=== PATIENT | female | born 1990 | race Caucasian/White ===

== ENCOUNTER 2016-11-16 22:51 | Emergency (ER) | payer OTHER ==
[~2016-11-16] VITALS: Ht 165.1 cm; Wt 70.5 kg
[~2016-11-16 22:51] MED LIST: ACET500C5 PO; DICL50TA11 PO; FAMO40TA52 PO; IBUP-1542 PO; PRAM28.33 PR
[2016-11-16 23:03] VITALS: Ht 165.1 cm; Wt 70.5 kg
[2016-11-16] MEDS ORDERED: FAMO-18 PO (23:52)
[2016-11-17] MEDS ORDERED: LIDOCAINE/MYLANTA 40 ML BTL PO ONE
[2016-11-17] MEDS ORDERED: HYDR30CR75 PR (00:02)
--- NOTE | 2016-11-17 00:06 | ERD ---
ER Documentation Chief Complaint Date/Time DATE: 11/17/16 TIME: 00:03 Chief Complaint AP x1 wk. feels bloated HPI Patient is a 26-year-old female with a past medical history of hemorrhoids, gastritis who presents the emergency department with epigastric pain 1 week. Patient states that she is having "heartburn" and increased burping over the last week. Patient states that she does eat spicy and fried foods. She states that she is trying to cut back. Patient denies any fever, nausea, vomiting. Patient reports intermittent chills. Patient also reports increased bloating. Patient states that today she had one episode of bright red blood on her toilet paper when wiping. Patient states that she does strain. Patient reports daily bowel movements but states that they are often hard. She denies any chest pain , shortness of breath, arm pain, diaphoresis. Patient does have some burning pain with urination. Patient denies any hematuria. Patient states her last menstrual period was on November 02, 2016 ROS All systems reviewed and are negative except as per history of present illness. Medications Home Meds Active Scripts Hydrocortisone Acetate* (Anusol-HC*) 30 Gm Cream.gm., 1 APPLIC [place] BID, #1 TUB Prov:BRANDEN MARTINO PA-C 11/17/16 Famotidine* (Pepcid*) 20 Mg Tablet, 20 MG PO BID for 30 Days, #60 TAB Prov:BRANDEN MARTINO PA-C 11/16/16 Ibuprofen* (Motrin*) 600 Mg Tab, 600 MG PO Q6, #20 TAB Prov:KAYLAN GUZMAN I. [employer] 02/05/16 Diclofenac Sodium* (Diclofenac Sodium*) 50 Mg Tablet.dr, 50 MG PO BID, #14 TAB Prov:KAYLAN GUZMAN I. [employer] 02/05/16 Acetaminophen* (Tylophen*) 500 Mg Capsule, 1 CAP PO Q6H Y for PAIN AND OR ELEVATED TEMP, #20 CAP Prov:LORENA SHAFFER MD 12/28/15 Famotidine* (Famotidine*) 40 Mg Tablet, 40 MG PO HS, #30 TAB Prov:LORENA SHAFFER MD 12/28/15 Ibuprofen* (Motrin*) 600 Mg Tab, 600 MG PO Q6, #30 TAB Prov:MARCIE DAVIES 10/13/15 Pramoxine Hcl* (Anusol*) 28.3 Gm Oint...g., 1 APPLIC [place] BID for 7 Days, TUB Prov:MARCIE DAVIES 10/13/15 Allergies Allergies: Coded Allergies: No Known Allergy (Unverified , 10/13/15) PMhx/Soc Medical and Surgical Hx: pt denies Medical Hx, pt denies Surgical Hx History of Surgery: No Anesthesia Reaction: No Hx Neurological Disorder: No Hx Respiratory Disorders: No Hx Cardiac Disorders: No Hx Psychiatric Problems: No Hx Miscellaneous Medical Probl: No Hx Alcohol Use: Yes (SOCIALLY) Hx Substance Use: No Hx Tobacco Use: No Smoking Status: Never smoker FmHx Family History: No diabetes Physical Exam Vitals Vital Signs Date Time Temp Pulse Resp B/P Pulse Ox O2 Delivery O2 Flow Rate FiO2 11/16/16 23:03 98.0 96 18 130/57 100 Physical Exam GENERAL: Well-developed, well-nourished female. Appears in no acute distress. HEAD: Normocephalic, atraumatic. EYES: Pupils are equally reactive bilaterally. EOMs grossly intact. No conjunctival erythema. ENT: Moist mucous membranes. No uvula deviation. No kissing tonsils. NECK: Supple. No meningismus. Normal range of motion of the neck. LUNG: Clear to auscultation bilaterally. No rhonchi, wheezing, rales or coarse breath sounds. HEART: Regular rate and rhythm. No murmurs, rubs or gallops. ABDOMEN: No scars, ecchymosis or rashes noted. Soft, nontender, and nondistended. Positive bowel sounds in all four quadrants. No rebound tenderness , no guarding. (-) McBurney's point tenderness. No CVA tenderness. RECTAL: Normal anus with+ external hemorrhoids. Non erythematous, no swelling. No rectal prolapse. Normal anal sphincter tone. BACK: No midline tenderness. EXTREMITIES: Equal pulses bilaterally. No peripheral clubbing, cyanosis or edema. No unilateral leg swelling. NEUROLOGIC: Alert and oriented. Moving all four extremities without any difficulty. Normal speech. Steady gait. SKIN: Normal color. Warm and dry. No rashes or lesions. Results 24 hrs Laboratory Tests Test 11/17/16 00:16 Bedside Urine Blood Trace-lysed Bedside Urine Glucose (UA) Negative Bedside Urine Ketones (LAB) Negative Bedside Urine Leukocyte Esterase (L Negative Bedside Urine Nitrite (LAB) Negative Bedside Urine Protein (LAB) Negative Bedside Urine pH (LAB) 5.5 Current Medications Medications (Trade) Dose Ordered Sig/Zia Route PRN Reason Start Time Stop Time Status Last Admin Dose Admin Miscellaneous Medication (Gi Cocktail (2)) 40 ml ONCE ONCE PO 11/17/16 00:00 11/17/16 00:01 DC 11/17/16 00:09 Procedures/MDM MEDICAL DECISION MAKING: This is a 26 year old female who presents with epigastric pain and one episode of rectal bleeding noted on toilet paper. Vital signs were reviewed. Patient is afebrile. Abdominal exam was negative. Rectal exam revealed external hemorrhoids. Patient was given a GI cocktail here in the ED, which she stated did improve her symptoms.Urine dip was negative for acute infection and hematuria. At this time, patient's presentation is most consistent with gastritis and external hemorrhoids. Unable to rule out internal hemorrhoids. I have a much lower clinical concern for acute coronary syndrome, lower lobe pneumonia, bowel obstruction, cholecystitis, pancreatitis, diverticulitis, UTI, pyelonephritis, anorectal abscess, anal fissure, anal fistula, rectal prolapse. Unable to rule PUD. PRESCRIPTIONS: Pepcid, Anusol cream DISCHARGE: At this time, patient is stable for discharge and outpatient management. Dietary modifications advised, patient advised to avoid spicy, fried and acidic foods. I have instructed the patient to follow-up with his/her primary care physician in 1-2 days. Patient should follow up with GI specialist for possible endoscopy to rule out PUD and anoscopy for hemorrhoids. I have instructed the patient to promptly return to the ER at any time for any new or worsening symptoms including increased pain, nausea, vomiting, diarrhea, fever, weakness or LOC. The patient and/or family expressed understanding of and agreement with this plan. All questions were answered. Home care instructions were provided. Departure Diagnosis: Primary Impression: Abdominal pain Abdominal location: unspecified location Qualified Code: R10.9 - Abdominal pain, unspecified location Additional Impression: Hemorrhoids Hemorrhoid type: unspecified Qualified Code: K64.9 - Hemorrhoids, unspecified hemorrhoid type Condition: Stable Patient Instructions: Abdominal Pain, Hemorrhoids Additional Instructions: Call your primary care doctor TOMORROW for an appointment during the next 1-2 days.See the doctor sooner or return here if your condition worsens before your appointment time. Unable to rule out internal hemorrhoids at this time. Patient may need to follow-up with a GI specialist if symptoms persist. She may need a colonoscopy on an outpatient basis. Patient was advised to increase fiber intake including apples, grapes, and prunes. Patient advised to avoid straining. BRANDEN MARTINO PA-C Nov 17, 2016 00:06
[2016-11-17 00:13] LABS: URINE BLOOD (Dip) POC Trace-lysed (NEGATIVE)
== END 2016-11-17 00:52 | disposition home or self-care (01) ==
LOC: FTE 22:51
DX: R10.13 Epigastric pain (principal); K64.9 Unspecified hemorrhoids
CPT/HCPCS: 81003; Z7502; Z7610; 99283

== ENCOUNTER 2017-06-21 11:28 | Emergency (ER) | payer OTHER ==
[~2017-06-21] VITALS: Ht 172.7 cm; Wt 71.0 kg
[~2017-06-21 11:28] MED LIST changes: +FAMO-96 PO; +HYDR30CR75 PR
[2017-06-21 11:29] VITALS: Ht 172.7 cm; Wt 71.0 kg
--- NOTE | 2017-06-21 11:57 | ERD ---
ER Documentation Chief Complaint Date/Time DATE: 06/21/17 TIME: 11:53 Chief Complaint PELVIC PAIN X 3 DAYS HPI This is a 26-year-old female who presents the emergency department today complaining of intermittent pelvic pain for the past 2 days. States that she has had pelvic pain in the past and was told that she had a cyst and she did follow up with her primary doctor and was told there is nothing she could do for it. States she is currently active with one sexual partner and had pain with intercourse the other day. Denies use of contraception. States she is not trying to get . States that a week ago she was diagnosed with a UTI but stopped taking medication because it made her nauseated. States sometimes she feels bloated and thinks that she is constipated. Denies any fevers or chills. Denies any abdominal pain or pelvic pain currently denies any vaginal bleeding. States she is unsure if she has vaginal discharge. ROS All systems reviewed and are negative except as per history of present illness. Medications Home Meds Active Scripts Fluconazole* (Diflucan*) 150 Mg Tablet, 150 MG PO ONCE, #1 TAB Prov:NICHOLAS ROLLINS PA-C 06/21/17 Clotrimazole* (Clotrimazole* AF) 1% - 30 Gm Cream.gm., 1 APPLIC TOP BID for 7 Days, #1 TUB Prov:NICHOLAS ROLLINS PA-C 06/21/17 Naproxen* (Naprosyn*) 500 Mg Tablet, 500 MG PO BID Y for PAIN AND/OR INFLAMMATION, #30 TAB Prov:NICHOLAS ROLLINS PA-C 06/21/17 Hydrocortisone Acetate* (Anusol-HC*) 30 Gm Cream.gm., 1 APPLIC [place] BID, #1 TUB Prov:BRANDEN MARTINO PA-C 11/17/16 Famotidine* (Pepcid*) 20 Mg Tablet, 20 MG PO BID for 30 Days, #60 TAB Prov:BRANDEN MARTINO PA-C 11/16/16 Ibuprofen* (Motrin*) 600 Mg Tab, 600 MG PO Q6, #20 TAB Prov:KAYLAN GUZMAN NP 02/05/16 Diclofenac Sodium* (Diclofenac Sodium*) 50 Mg Tablet.dr, 50 MG PO BID, #14 TAB Prov:GUZMANKAYLAN GAMBLE NP 02/05/16 Acetaminophen* (Tylophen*) 500 Mg Capsule, 1 CAP PO Q6H Y for PAIN AND OR ELEVATED TEMP, #20 CAP Prov:LORENA SHAFFER MD 12/28/15 Famotidine* (Famotidine*) 40 Mg Tablet, 40 MG PO HS, #30 TAB Prov:LORENA SHAFFER MD 12/28/15 Ibuprofen* (Motrin*) 600 Mg Tab, 600 MG PO Q6, #30 TAB Prov:MARCIE DAVIES 10/13/15 Pramoxine Hcl* (Anusol*) 28.3 Gm Oint...g., 1 APPLIC [place] BID for 7 Days, TUB Prov:SAMSONMARCIE C 10/13/15 Allergies Allergies: Coded Allergies: No Known Allergy (Unverified , 10/13/15) PMhx/Soc History of Surgery: No Anesthesia Reaction: No Hx Neurological Disorder: No Hx Respiratory Disorders: No Hx Cardiac Disorders: No Hx Psychiatric Problems: No Hx Miscellaneous Medical Probl: No Hx Alcohol Use: Yes (SOCIALLY) Hx Substance Use: No Hx Tobacco Use: No Smoking Status: Former smoker Physical Exam Vitals Vital Signs Date Time Temp Pulse Resp B/P Pulse Ox O2 Delivery O2 Flow Rate FiO2 06/21/17 11:29 98.0 68 18 117/59 100 Physical Exam Const: NAD Head: Atraumatic Eyes: Normal Conjunctiva ENT: Normal External Ears, Nose and Mouth. Neck: Full range of motion..~ No meningismus. Resp: Clear to auscultation bilaterally Cardio: Regular rate and rhythm, no murmurs Abd: Soft, non tender, non distended. Normal bowel sounds pelvic exam with evidence of significant amount of yeast. No cervical motion tenderness. No bleeding Skin: No petechiae or rashes Back: No midline or flank tenderness Ext: No cyanosis, or edema Neur: Awake and alert Psych: Normal Mood and Affect Results 24 hrs Laboratory Tests Test 06/21/17 11:51 Urine Color YELLOW Urine Clarity CLOUDY Urine pH 6.0 Urine Specific [place] 1.028 Urine Ketones NEGATIVEmg/dL Urine Nitrite NEGATIVEmg/dL Urine Bilirubin NEGATIVEmg/dL Urine Urobilinogen NEGATIVEmg/dL Urine Leukocyte Esterase TRACELeu/ul Urine Microscopic RBC 1/HPF Urine Microscopic WBC 3/HPF Urine Squamous Epithelial Cells MANY/HPF Urine Bacteria FEW/HPF Urine Mucus FEW/HPF Urine Hemoglobin NEGATIVEmg/dL Urine Glucose NEGATIVEmg/dL Urine Total Protein NEGATIVEmg/dl DIAGNOSTIC IMAGING REPORT Patient: CHANDU LOPEZ : 1990 Age: 26 Sex: F MR #: [id number] DOS: 06/21/17 0000 Ordering MD: NICHOLAS ROLLINS PA-C Location: [facility] Room/Bed: PROCEDURE: US Pelvis Transabdominal and Transvaginal. CLINICAL INDICATION: Pelvic pain. TECHNIQUE: Multiple sonographic images of the pelvis were obtained utilizing burris scale, Doppler and color flow imaging with transabdominal and endovaginal technique. The images were reviewed on a PACS workstation. COMPARISON: October 13, 2015 FINDINGS: The uterus is visualized and measures 7.3 x 3.5 x 4.1 cm. The endometrial echo complex measures 14.1 mm in thickness. No uterine masses are identified. The right ovary measures 2.8 x 1.7 x 1.8 cm . The left ovary measures 3.0 x 2.2 x 2.4 cm. A 2.0 cm cyst containing echogenic debris is identified on the left ovary. The ovaries demonstrate normal vascularity.. No adnexal masses or pelvic free fluid are noted. IMPRESSION: 2.0 cm cyst containing echogenic debris on the left ovary. This likely reflects a hemorrhagic cyst. Continued follow-up with repeat exam in 12 weeks to assess stability can be considered. Otherwise, unremarkable exam. If further characterization of the organs of the pelvis is needed MRI should be considered. RPTAT: AA .Paul Mane MD, MD Date Time Electronically viewed and signed by .Paul Mane MD, MD on 06/21/2017 13:10 .P/ CC: NICHOLAS ROLLINS PA-C Procedures/[facility] This 26-year-old female who presents the emergency department today complaining of intermittent pelvic pain for the past couple of days and pain with intercourse. Patient is a poor historian and stated that she was told that she had a urinary tract infection and then reiterated that the doctor told her she did not have one but she was just given antibiotics anyway. Given patient's complaints I did obtain a pelvic ultrasound and UA. UA shows trace leukocyte esterase and no increase in microscopic white blood cells. There are many epithelial cells. Urine was sent for gonorrhea and chlamydia test is negative Ultrasound is a 2 cm cyst containing echogenic debris on the left ovary. This likely reflects a hemorrhagic cyst. Repeat follow-up exam in 12 weeks was recommended. There is normal vascularity to bilateral ovaries. There is no adnexal mass or free fluid. Pelvic exam showed a significant amount of yeast and patient will be given a prescription for Chlortrimazole cream as well as Diflucan. 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 Patient sees may be the cause of her pelvic pain and pain with intercourse and dysuria. She has no cervical motion tenderness and I have low suspicion for PID. She is afebrile and otherwise well-appearing. This patient for ectopic or tubo-ovarian abscess. She denies any pain currently. She will be given a prescription for Tylenol for home addition to the Chlortrimazole and Diflucan. At this time the patient is stable for discharge and outpatient management. Patient should follow up with their PCP in the next 1-2 days. They may return to the emergency department sooner for any persistent or worsening of symptoms. Patient understood and agreed with the plan. Departure Diagnosis: Primary Impression: Pelvic pain Condition: NICHOLAS Garvin PA-C Jun 21, 2017 11:57
[2017-06-21 12:26] LABS: ADD UMIC YES; UR ASCORBIC ACID NEGATIVE (NEGATIVE); UR BACTERIA FEW /HPF (NONE SEEN); UR BILIRUBIN (Dip) NEGATIVE (NEGATIVE); UR BLOOD (Dip) NEGATIVE (NEGATIVE); UR CLARITY CLOUDY (CLEAR); UR COLOR YELLOW (YELLOW); UR GLUCOSE (Dip) NEGATIVE (NEGATIVE); UR KETONES (Dip) NEGATIVE (NEGATIVE); UR LEUKOCYTE ESTERASE (Dip) TRACE Leu/ul (NEGATIVE); UR MUCUS FEW /HPF (NONE SEEN); UR NITRITE (Dip) NEGATIVE (NEGATIVE); UR NONSQUAMOUS EPITHELIAL CELL 1 /HPF (NONE SEEN); UR RBC 1 /HPF (0-5); UR SPECIFIC GRAVITY (Dip) 1.028 (1.003-1.030); UR SQUAMOUS EPITHELIAL CELL MANY /HPF (FEW); UR TOTAL PROTEIN (Dip) NEGATIVE (NEGATIVE); UR UROBILINOGEN (Dip) NEGATIVE (NEGATIVE)
--- NOTE | 2017-06-21 13:11 | RADRPT ---
PROCEDURE: US Pelvis Transabdominal and Transvaginal. CLINICAL INDICATION: Pelvic pain. TECHNIQUE: Multiple sonographic images of the pelvis were obtained utilizing burris scale, Doppler a nd color flow imaging with transabdominal and endovaginal technique. The images were reviewed on a PACS workstation. COMPARISON: October 13, 2015 FINDINGS: The uterus is visualized and measures 7.3 x 3.5 x 4.1 cm. The endometrial echo complex measures 14.1 mm in thickness. No uterine masses are identified. The right ovary measures 2.8 x 1.7 x 1.8 cm . The left ovary measures 3.0 x 2.2 x 2.4 cm. A 2.0 cm cyst containing echogenic debris is identified on the left ovary. The ovaries demonstrate normal va scularity.. No adnexal masses or pelvic free fluid are noted. IMPRESSION: 2.0 cm cyst containing echogenic debris on the left ovary. This likely reflects a hemorrhagic cyst. Continued follow-up with repeat exam in 12 weeks to assess stability can be considered. Otherwise, unremarkable exam. If further characterization of the organs of the pelvis is needed MRI should be considered. RPTAT: AA .Paul Mane MD, MD Date Time Electronically viewed and signed by .Paul Mane MD, MD on 06/21/2017 13:10 .P/
[2017-06-21] MEDS ORDERED: NAPR-260 PO (13:57)
[2017-06-21] MEDS ORDERED: FLUC150T17 PO (13:59)
[2017-06-21] MEDS ORDERED: CLOT30CR24 TOP (13:59)
== END 2017-06-21 14:25 | disposition home or self-care (01) ==
LOC: FTE 11:28
DX: R10.2 Pelvic and perineal pain (principal); Z87.891 Personal history of nicotine dependence
CPT/HCPCS: 76830; 76856; 81001; 87591; Z7502; 99284

== ENCOUNTER 2017-09-30 19:01 | Emergency (ER) | END 2017-10-01 10:20 | disposition left against medical advice (07) ==

== ENCOUNTER 2018-03-13 20:16 | Emergency (ER) | END 2018-03-14 01:18 | disposition home or self-care (01) ==

== ENCOUNTER 2019-01-25 21:19 | Emergency (ER) | payer OTHER ==
[~2019-01-25] VITALS: Ht 162.6 cm; Wt 85.6 kg
[~2019-01-25 21:19] MED LIST changes: +BTM.05O15 TOP; +CLOT30CR24 TOP; +FAMO40TA5 PO; -FAMO40TA52 PO; +FLUC150T PO; +NAPR-985 PO
[2019-01-25 21:21] VITALS: Ht 162.6 cm; Wt 85.6 kg
[2019-01-25] MEDS ORDERED: ONDANSETRON (ODT) 4 MG TAB ODT STA (23:22)
[2019-01-25] MEDS ORDERED: FAMOTIDINE 20 MG TAB PO STA (23:22)
[2019-01-25] MEDS ORDERED: LIDOCAINE/MYLANTA 40 ML BTL PO STA (23:22)
[2019-01-25] MEDS ORDERED: FAMO-96 PO (23:25)
--- NOTE | 2019-01-25 23:27 | ERD ---
ER Documentation Chief Complaint Chief Complaint ABD PAIN WITH N/V XTODAY; AFTER EATING EGGS HPI 28-year-old female presenting with complaints of epigastric abdominal pain with burning in her chest and acid reflux. Her symptoms have been going on for quite some time now but worsening. She is on a tetracycline for her acne and states that when she started this medication, her symptoms started. She sometimes forgets to take it with plenty of water and food. Today her symptoms were worse than usual with more acid reflux and nonbloody and nonbilious vomiting. No hem atochezia, melena, constipation or diarrhea. No fevers or chills. No chest pain or shortness of breath otherwise. She has not tried to take anything for her symptoms. ROS All systems reviewed and are negative except as per history of present illness. Medications Home Meds Active Scripts Famotidine* (Pepcid*) 20 Mg Tablet, 20 MG PO BID for 14 Days, TAB Prov:SHASHI HENRY MD 01/25/19 Betamethasone Dipropionate* (Betamethasone Dipropionate*) 0.05% - 15 Gm Oint, 1 APPLIC TOP BID for 7 Days, #15 GM APPLY TO: Prov:VETOKIRILL 03/14/18 Fluconazole* (Diflucan*) 150 Mg Tablet, 150 MG PO ONCE, #1 TAB Prov:NICHOLAS ROLLINS PA-C 06/21/17 Clotrimazole* (Clotrimazole* AF) 1% - 30 Gm Cream.gm., 1 APPLIC TOP BID for 7 Days, #1 TUB Prov:NICHOLAS ROLLINS PA-C 06/21/17 Naproxen* (Naprosyn*) 500 Mg Tablet, 500 MG PO BID PRN for PAIN AND/OR INFLAMMATION, #30 TAB Prov:NICHOLAS ROLLINS PA-C 06/21/17 Hydrocortisone Acetate* (Anusol-HC*) 30 Gm Cream.gm., 1 APPLIC [place] BID, #1 TUB Prov:BRANDEN MARTINO PA-C 11/17/16 Famotidine* (Pepcid*) 20 Mg Tablet, 20 MG PO BID for 30 Days, #60 TAB Prov:BRANDEN MARTINO PA-C 11/16/16 Ibuprofen* (Motrin*) 600 Mg Tab, 600 MG PO Q6, #20 TAB Prov:KAYLAN GUZMAN I. [employer] 02/05/16 Diclofenac Sodium* (Diclofenac Sodium*) 50 Mg Tablet.dr, 50 MG PO BID, #14 TAB Prov:KAYLAN GUZMAN I. DIRECTOR [employer] 02/05/16 Acetaminophen* (Tylophen*) 500 Mg Capsule, 1 CAP PO Q6H PRN for PAIN AND OR ELEVATED TEMP, #20 CAP Prov:LORENA SHAFFER MD 12/28/15 Famotidine* (Famotidine*) 40 Mg Tablet, 40 MG PO HS, #30 TAB Prov:LORENA SHAFFER MD 12/28/15 Ibuprofen* (Motrin*) 600 Mg Tab, 600 MG PO Q6, #30 TAB Prov:MARCIE DAVIES 10/13/15 Pramoxine Hcl* (Anusol*) 28.3 Gm Oint...g., 1 APPLIC [place] BID for 7 Days, TUB Prov:MARCIE DAVIES 10/13/15 Allergies Allergies: Coded Allergies: No Known Allergy (Unverified , 10/13/15) PMhx/Soc History of Surgery: No Anesthesia Reaction: No Hx Neurological Disorder: No Hx Respiratory Disorders: No Hx Cardiac Disorders: No Hx Psychiatric Problems: No Hx Miscellaneous Medical Probl: No Hx Alcohol Use: Yes (SOCIALLY) Hx Substance Use: No Hx Tobacco Use: No Smoking Status: Never smoker FmHx Family History: No diabetes Physical Exam Vitals Vital Signs Date Temp Pulse Resp B/P (MAP) Pulse Ox O2 O2 Flow FiO2 Time Delivery Rate 01/26/19 98.0 62 16 114/74 98 Room Air 00:00 (87) 01/25/19 98.8 83 19 144/63 100 21:21 (90) Physical Exam Const: No acute distress Head: Atraumatic Eyes: Normal Conjunctiva ENT: Normal External Ears, Nose and Mouth. Neck: Full range of motion. No meningismus. Resp: Clear to auscultation bilaterally Cardio: Regular rate and rhythm, no murmurs Abd: Soft, non tender, non distended. No McBurney's point tenderness. Negative Myers sign. Normal bowel sounds Skin: No petechiae or rashes Back: No midline or flank tenderness Ext: No cyanosis, or edema Neur: Awake and alert Psych: Normal Mood and Affect Results 24 hrs Current Medications Medications Dose Sig/Zia Start Time Status Last (Trade) Ordered Route PRN Stop Time Admin Dose Reason Admin Famotidine 20 mg ONCE STAT 01/25/19 DC 01/25/19 (Pepcid) PO 23:22 23:28 01/25/19 23:23 40 ml ONCE STAT 01/25/19 DC 01/25/19 Miscellaneous PO 23:22 23:28 Medication 01/25/19 23:23 (Gi Cocktail (2)) Ondansetron 4 mg ONCE STAT 01/25/19 DC 01/25/19 HCl (Zofran ODT 23:22 23:28 Odt) 01/25/19 23:23 Procedures/MDM Initial Nursing notes reviewed. Previous Medical Records requested via the Electronic Health Record. EMERGENCY DEPARTMENT COURSE / MEDICAL DECISION MAKING: Patient symptoms are most consistent with tetracycline induced gastritis. I wilson ve a low suspicion for acute surgical abdomen. She is afebrile with unremarkable vitals. She was treated with Pepcid, GI cocktail, and Zofran. She was able to tolerate fluids by mouth. Diet precautions were discussed. I gave her a prescription for Pepcid. Advised drinking plenty of fluid and eating with her medication. If her symptoms do not improve, she may have to stop taking the medication. If this is the case, I recommend that she follow-up with her primary care doctor to discuss discontinuing or changing the medication. Patient is agreeable with this plan. Patient's blood pressure was elevated (>120/80) but appears stable without evidence of hypertensive emergency or urgency. The patient was counseled about the risks of hypertension and urged to pursue outpatient monitoring and therapy within a week with their primary care physician. Departure Diagnosis: Primary Impression: Drug-induced GI disturbance Additional Impression: Gastritis Gastritis type: other gastritis Chronicity: acute Gastritis bleeding: without bleeding Qualified Codes: K29.00 - Acute gastritis without bleeding Condition: Stable Patient Instructions: Gastritis (Adult) SHASHI HENRY MD Jan 25, 2019 23:27
[2019-01-26] VITALS: BP 114/74; PULSE 62; RESP 16
== END 2019-01-26 | disposition home or self-care (01) ==
LOC: FTE 21:19
DX: K30 Functional dyspepsia (principal); K29.00 Acute gastritis without bleeding
CPT/HCPCS: Z7502; Z7610; 99283

== ENCOUNTER 2019-03-01 18:17 | Emergency (ER) | payer OTHER ==
[~2019-03-01] VITALS: Ht 165.1 cm; Wt 86.1 kg
[2019-03-01 18:30] VITALS: BP 132/61; PULSE 77; RESP 20; Ht 165.1 cm; Wt 86.1 kg
--- NOTE | 2019-03-01 18:56 | ERD ---
ER Documentation Chief Complaint Chief Complaint heart palpitations off and on since Fri. states SOB when she walks. HPI 28-year-old female with history of anemia presents complaint of palpitations on and off since Friday. States that she just started a new job she is been feeling very stressed out. In addition states patient having some mild shortness of breath when she walks. Denies any chest pain, hemoptysis, cough, headaches, extremity swelling, extremity erythema, malignancy, recent travel, recent stasis. ROS All systems reviewed and are negative except as per history of present illness. Medications Home Meds Active Scripts Famotidine* (Pepcid*) 20 Mg Tablet, 20 MG PO BID for 14 Days, TAB Prov:SHASHI HENRY MD 01/25/19 Betamethasone Dipropionate* (Betamethasone Dipropionate*) 0.05% - 15 Gm Oint, 1 APPLIC TOP BID for 7 Days, #15 GM APPLY TO: Prov:KIRILL LAWS 03/14/18 Fluconazole* (Diflucan*) 150 Mg Tablet, 150 MG PO ONCE, #1 TAB Prov:NICHOLAS ROLLINS PA-C 06/21/17 Clotrimazole* (Clotrimazole* AF) 1% - 30 Gm Cream.gm., 1 APPLIC TOP BID for 7 Days, #1 TUB Prov:NICHOLAS ROLLINS PA-C 06/21/17 Naproxen* (Naprosyn*) 500 Mg Tablet, 500 MG PO BID PRN for PAIN AND/OR INFLAMMATION, #30 TAB Prov:NICHOLAS ROLLINS PA-C 06/21/17 Hydrocortisone Acetate* (Anusol-HC*) 30 Gm Cream.gm., 1 APPLIC PA BID, #1 TUB Prov:BRANDEN MARTINOC 11/17/16 Famotidine* (Pepcid*) 20 Mg Tablet, 20 MG PO BID for 30 Days, #60 TAB Prov:BRANDEN MARTINOC 11/16/16 Ibuprofen* (Motrin*) 600 Mg Tab, 600 MG PO Q6, #20 TAB Prov:KAYLAN GUZMAN NP 02/05/16 Diclofenac Sodium* (Diclofenac Sodium*) 50 Mg Tablet.dr, 50 MG PO BID, #14 TAB Prov:KAYLAN GUZMAN Saritha LUKE 02/05/16 Acetaminophen* (Tylophen*) 500 Mg Capsule, 1 CAP PO Q6H PRN for PAIN AND OR ELEVATED TEMP, #20 CAP Prov:LORENA SHAFFER MD 12/28/15 Famotidine* (Famotidine*) 40 Mg Tablet, 40 MG PO HS, #30 TAB Prov:LORENA SHAFFER MD 12/28/15 Ibuprofen* (Motrin*) 600 Mg Tab, 600 MG PO Q6, #30 TAB Prov:SAMSONMARCIE LAU C 10/13/15 Pramoxine Hcl* (Anusol*) 28.3 Gm Oint...g., 1 APPLIC PA BID for 7 Days, TUB Prov:SAMSON,MARCIE C 10/13/15 Allergies Allergies: Coded Allergies: No Known Allergy (Unverified , 10/13/15) PMhx/Soc Medical and Surgical Hx: pt denies Surgical Hx History of Surgery: No Anesthesia Reaction: No Hx Neurological Disorder: No Hx Respiratory Disorders: No Hx Cardiac Disorders: No Hx Psychiatric Problems: No Hx Miscellaneous Medical Probl: No Hx Alcohol Use: Yes (SOCIALLY) Hx Substance Use: No Hx Tobacco Use: No Smoking Status: Never smoker FmHx Family History: No diabetes, No coronary disease, No other Physical Exam Vitals Vital Signs Date Temp Pulse Resp B/P (MAP) Pulse Ox O2 O2 Flow FiO2 Time Delivery Rate 03/01/19 99.3 77 20 132/61 98 18:30 (84) Physical Exam Const: No acute distress Head: Atraumatic Eyes: Normal Conjunctiva ENT: Normal External Ears, Nose and Mouth. Neck: Full range of motion. No meningismus. Resp: Clear to auscultation bilaterally Cardio: Regular rate and rhythm, no murmurs Abd: Soft, non tender, non distended. Normal bowel sounds Skin: No petechiae or rashes Back: No midline or flank tenderness Ext: No cyanosis, or edema Neur: Awake and alert Psych: Normal Mood and Affect Result Diagram: 03/01/19185603/01/191856 Results 24 hrs Laboratory Tests Test 03/01/19 18:57 White Blood Count 6.1 10^3/ul Red Blood Count 3.95 10^6/ul Hemoglobin 10.6 g/dl Hematocrit 34.0 % Mean Corpuscular Volume 86.1 fl Mean Corpuscular Hemoglobin 26.8 pg Mean Corpuscular Hemoglobin Concent 31.2 g/dl Red Cell Distribution Width 13.3 % Platelet Count 234 10^3/UL Mean Platelet Volume 10.9 fl Immature Granulocytes % 0.200 % Neutrophils % 66.2 % Lymphocytes % 22.0 % Monocytes % 9.8 % Eosinophils % 1.3 % Basophils % 0.5 % Nucleated Red Blood Cells % 0.0 /100WBC Immature Granulocytes # 0.010 10^3/ul Neutrophils # 4.1 10^3/ul Lymphocytes # 1.4 10^3/ul Monocytes # 0.6 10^3/ul Eosinophils # 0.1 10^3/ul Basophils # 0.0 10^3/ul Nucleated Red Blood Cells # 0.0 10^3/ul Sodium Level 140 mmol/L Potassium Level 4.2 mmol/L Chloride Level 105 mmol/L Carbon Dioxide Level 27 mmol/L Anion Gap 8 Blood Urea Nitrogen 10 mg/dl Creatinine 0.77 mg/dl Est Glomerular Filtrat Rate mL/min > 60 mL/min Glucose Level 110 mg/dl Calcium Level 9.2 mg/dl Total Bilirubin 0.4 mg/dl Direct Bilirubin 0.00 mg/dl Indirect Bilirubin 0.4 mg/dl Aspartate Amino Transf (AST/SGOT) 34 IU/L Alanine Aminotransferase (ALT/SGPT) 57 IU/L Alkaline Phosphatase 76 IU/L Troponin I < 0.012 ng/ml Total Protein 7.5 g/dl Albumin 4.1 g/dl Globulin 3.40 g/dl Albumin/Globulin Ratio 1.20 Procedures/MDM EKG: Rate/Rhythm: Normal Sinus Rhythm QRS, ST, T-waves: No changes consistent w/ acute ischemia Impression: No evidence of ischemia or arrhythmia MDM: Lab work is within normal limits except for slight anemia which patient had already noted on exam on for which she is taking iron for. Is possible that the anemia is causing her palpitations. Her electrolytes are normal. EKG was within normal limits. I have low suspicition for acute coronary syndrome, arrhythmia, pulmonary embolism, aortic dissection, AAA, pneumothorax, esophageal rupture, pericarditis, myocarditis, or pneumonia based on EKG, imaging, labs, patient history and exam. Patient discharged with strict ER precautions. Patient advised to follow up with PMD. All questions answered at discharge. Departure Diagnosis: Primary Impression: Palpitations Additional Impression: Anemia Anemia type: unspecified type Qualified Codes: D64.9 - Anemia, unspecified Condition: Stable ISSAC HEREDIA Mar 01, 2019 18:56
== END 2019-03-01 22:00 | disposition home or self-care (01) ==
LOC: FTE 18:17
DX: R00.2 Palpitations (principal); D64.9 Anemia, unspecified
CPT/HCPCS: 36415; 80053; 84484; 85025; 93005; Z7502

== ENCOUNTER 2019-05-14 17:35 | Emergency (ER) | payer OTHER ==
[~2019-05-14] VITALS: Ht 165.1 cm; Wt 85.0 kg
[2019-05-14 17:40] VITALS: Ht 165.1 cm; Wt 85.0 kg
--- NOTE | 2019-05-14 18:21 | ERD ---
ER Documentation Chief Complaint Chief Complaint ABD PAIN X1 WEEK, NO N/V/D, NO DYSURIA HPI Patient is a 28-year-old female who presents the ER for concerns of requesting STD testing. Patient states she had unprotected sex recently. Patient states she occasionally has abdominal cramps however she has no symptoms at this time. Patient denies any fevers, chills, nausea, vomiting, diarrhea, dysuria, frequency, urgency, vaginal bleeding or vaginal discharge. ROS All systems reviewed and are negative except as per history of present illness. Medications Home Meds Active Scripts Famotidine* (Pepcid*) 20 Mg Tablet, 20 MG PO BID for 14 Days, TAB Prov:SHASHI HENRY MD 01/25/19 Betamethasone Dipropionate* (Betamethasone Dipropionate*) 0.05% - 15 Gm Oint, 1 APPLIC TOP BID for 7 Days, #15 GM APPLY TO: Prov:VETOKIRILL RIVERA 03/14/18 Fluconazole* (Diflucan*) 150 Mg Tablet, 150 MG PO ONCE, #1 TAB Prov:NICHOLAS ROLLINS PA-C 06/21/17 Clotrimazole* (Clotrimazole* AF) 1% - 30 Gm Cream.gm., 1 APPLIC TOP BID for 7 Days, #1 TUB Prov:NICHOLAS ROLLINS PA-C 06/21/17 Naproxen* (Naprosyn*) 500 Mg Tablet, 500 MG PO BID PRN for PAIN AND/OR INFLAMMATION, #30 TAB Prov:NICHOLAS ROLLINS PA-C 06/21/17 Hydrocortisone Acetate* (Anusol-HC*) 30 Gm Cream.gm., 1 APPLIC IA BID, #1 TUB Prov:BRANDEN MARTINO PA-C 11/17/16 Famotidine* (Pepcid*) 20 Mg Tablet, 20 MG PO BID for 30 Days, #60 TAB Prov:BRANDEN MARTINOC 11/16/16 Ibuprofen* (Motrin*) 600 Mg Tab, 600 MG PO Q6, #20 TAB Prov:GUZMANKAYLAN BRIDGES I. [employer] 02/05/16 Diclofenac Sodium* (Diclofenac Sodium*) 50 Mg Tablet.dr, 50 MG PO BID, #14 TAB Prov:GUZMANKAYLAN BRIDGES NP 02/05/16 Acetaminophen* (Tylophen*) 500 Mg Capsule, 1 CAP PO Q6H PRN for PAIN AND OR ELEVATED TEMP, #20 CAP Prov:LORENA SHAFFER MD 12/28/15 Famotidine* (Famotidine*) 40 Mg Tablet, 40 MG PO HS, #30 TAB Prov:LORENA SHAFFER MD 12/28/15 Ibuprofen* (Motrin*) 600 Mg Tab, 600 MG PO Q6, #30 TAB Prov:MARCIE DAVIES 10/13/15 Pramoxine Hcl* (Anusol*) 28.3 Gm Oint...g., 1 APPLIC IA BID for 7 Days, TUB Prov:SAMSON,MARCIE C 10/13/15 Allergies Allergies: Coded Allergies: No Known Allergy (Unverified , 10/13/15) PMhx/Soc History of Surgery: No Anesthesia Reaction: No Hx Neurological Disorder: No Hx Respiratory Disorders: No Hx Cardiac Disorders: No Hx Psychiatric Problems: Yes (anxiety) Hx Miscellaneous Medical Probl: No Hx Alcohol Use: Yes (SOCIALLY) Hx Substance Use: No Hx Tobacco Use: No Smoking Status: Never smoker FmHx Family History: No diabetes Physical Exam Vitals Vital Signs Date Temp Pulse Resp B/P (MAP) Pulse Ox O2 O2 Flow FiO2 Time Delivery Rate 05/14/19 97.6 70 17 119/65 99 18:43 (83) 05/14/19 97.6 60 17 119/65 99 17:40 (83) Physical Exam GENERAL: Well-developed, well-nourished female. Appears in no acute distress. HEAD: Normocephalic, atraumatic. EYES: Pupils are equally reactive bilaterally. EOMs grossly intact. No conjunctival erythema. NECK: Supple. No meningismus. Normal range of motion of the neck. LUNG: No respiratory distress ABDOMEN: Soft, nontender, and nondistended. Positive bowel sounds in all four q uadrants. No rebound tenderness, no guarding. (-) McBurney's point tenderness. No CVA tenderness. EXTREMITIES: Equal pulses bilaterally. No peripheral clubbing, cyanosis or edema. No unilateral leg swelling. NEUROLOGIC: Alert and oriented. Moving all four extremities without any difficulty. Normal speech. Steady gait. SKIN: Normal color. Warm and dry. No rashes or lesions. Results 24 hrs Laboratory Tests Test 05/14/19 18:28 05/14/19 18:30 POC Beta HCG, Qualitative NEGATIVE Bedside Urine pH (LAB) 7.0 Bedside Urine Protein (LAB) Negative Bedside Urine Glucose (UA) Negative Bedside Urine Ketones (LAB) Negative Bedside Urine Blood Trace-intact Bedside Urine Nitrite (LAB) Negative Bedside Urine Leukocyte Esterase (L Negative Procedures/MDM MEDICAL DECISION MAKING: Patient is a 28-year-old female presents the ER for concerns of STD testing. Vital signs were reviewed. Patient is afebrile. Abdominal exam was benign. Patient had no peritoneal signs. UA showed no evidence of acute infection or hematuria. Urine test was negative. Urine gonorrhea and Chlamydia testing obtained, results pending. Patient advised that results will be available in 3 to 5 days as this is a send out test. This time, patient's presentation is most consistent with STD screening. Differential diagnoses include was not limited to acute coronary syndrome, AAA, mesenteric ischemia, lower lobe pneumonia, DKA, bowel perforation, cholecy stitis, choledocholithiasis, ascending cholangitis, hepatic abscess, pancreatitis, PUD, gastritis, GERD, splenic rupture, diverticulitis, UTI, pyelonephritis, nephrolithiasis, appendicitis, constipation, , ectopic , PID, ovarian torsion or tubo-ovarian abscess. Patient was nontoxic, [id number] prior to discharge. DISCHARGE: At this time, patient is stable for discharge and outpatient management. I have instructed the patient to follow-up with his/her primary care physician in 1-2 days. I have instructed the patient to promptly return to the ER at any time for any new or worsening symptoms including increased pain, nausea, vomiting, diarrhea, fever, weakness or LOC. The patient and/or family expressed understanding of and agreement with this plan. All questions were answered. Home care instructions were provided. Disclaimer: Inadvertent spelling and grammatical errors are likely due to EHR/dictation software use and do not reflect on the overall quality of patient care. Also, please note that the electronic time recorded on this note does not necessarily reflect the actual time of the patient encounter. Departure Diagnosis: Primary Impression: Screening for STD (sexually transmitted disease) Condition: Fair Patient Instructions: Teens: STD Symptoms in Women Referrals: COMMUNITY CLINICS YOU HAVE RECEIVED A MEDICAL SCREENING EXAM AND THE RESULTS INDICATE THAT YOU DO NOT HAVE A CONDITION THAT REQUIRES URGENT TREATMENT IN THE EMERGENCY DEPARTMENT. FURTHER EVALUATION AND TREATMENT OF YOUR CONDITION CAN WAIT UNTIL YOU ARE SEEN IN YOUR DOCTORS OFFICE WITHIN THE NEXT 1-2 DAYS. IT IS YOUR RESPONSIBILITY TO MAKE AN APPOINTMENT FOR FOLOW-UP CARE. IF YOU HAVE A PRIMARY DOCTOR --you should call your primary doctor and schedule an appointment IF YOU DO NOT HAVE A PRIMARY DOCTOR YOU CAN CALL OUR PHYSICIAN REFERRAL HOTLINE AT IF YOU CAN NOT AFFORD TO SEE A PHYSICIAN YOU CAN CHOSE FROM THE FOLLOWING FORMERLY [facility] CLINICS [facility] [address] [facility]. [facility] [address] [facility] [facility] [address] [facility] [address] [facility] [facility] [address] [facility]. [facility]. [address] [facility]. [facility] YOU HAVE RECEIVED A MEDICAL SCREENING EXAM AND THE RESULTS INDICATE THAT YOU DO NOT HAVE A CONDITION THAT REQUIRES URGENT TREATMENT IN THE EMERGENCY DEPARTMENT. FURTHER EVALUATION AND TREATMENT OF YOUR CONDITION CAN WAIT UNTIL YOU ARE SEEN IN YOUR DOCTORS OFFICE WITHIN THE NEXT 1-2 DAYS. IT IS YOUR RESPONSIBILITY TO MAKE AN APPOINTMENT FOR FOLOW-UP CARE. IF YOU HAVE A PRIMARY DOCTOR --you should call your primary doctor and schedule and appointment IF YOU DO NOT HAVE A PRIMARY DOCTOR YOU CAN CALL OUR PHYSICIAN REFERRAL HOTLINE AT . IF YOU CAN NOT AFFORD TO SEE A PHYSICIAN YOU CAN CHOSE FROM THE FOLLOWING FORMERLY [facility] INSTITUTIONS: [facility] [address] [place] [address] [facility] [address] [place] [address] [facility] [address] [place] [address] [employer] [address] [facility] [address] [place] [address]AMEENA HOL[address]OOK [address] [place] [address] [address] VILLANUEVA RYAN [address] [place] [address] [address] [place], [facility] [address], [address], [place] [address] [facility] [address] [place] [address] [facility] [address] [place] [address] [address] [facility] [address] [address]ORES, [place] [address] [facility] [address] [address] POTTER, [place] [address] [facility], [place] [address] [address] LOPEZ, [facility] [address] [place], [place] [id number] Additional Instructions: Follow up with your primary care doctor or [facility] for additional STD screening test. Call your primary care doctor TOMORROW for an appointment during the next 1-2 days.See the doctor sooner or return here if your condition worsens before your appointment time. BRANDEN MARTINO PA-C May 14, 2019 18:21 KITTY ORDONEZ MD May 15, 2019 12:31
[2019-05-14 18:43] VITALS: BP 119/65; PULSE 70; RESP 17
== END 2019-05-14 18:43 | disposition home or self-care (01) ==
LOC: FTE 17:35
DX: Z11.3 Encounter for screening for infections with a predominantly sexual mode of transmission (principal)
CPT/HCPCS: 81003; 81025; 87591; 99283